=== PATIENT | female | born 1980 | race Caucasian/White ===

== ENCOUNTER 2017-07-09 08:53 | Outpatient (CLI) | payer BC | END 2017-07-09 08:54 | disposition home or self-care (01) | LOC: CP 08:53 → MERGE 09:30 | PROVIDERS: ATTEND Internal Medicine | DX: R05 Cough (principal); R91.8 Other nonspecific abnormal finding of lung field | CPT/HCPCS: 94010; 94727; 94729 ==

== ENCOUNTER 2017-07-28 17:02 | Emergency (ER) | payer BC ==
[2017-07-28 17:39] LABS: #Basophils 0.1 thou/uL (0.0-0.2); #Eosinphils 0.1 thou/uL (0.0-0.7); #Lymphocytes 1.6 thou/uL (1.20-3.40); #Monocytes 0.7 thou/uL (0.11-0.59); %Eosinophils 1.3 % (0.0-10.0); %Lymphocytes 17.1 % (21.0-51.0); %Monocytes 7.1 % (0.0-10.0); Hematocrit 38.5 % (36.0-47.0); Mean Platelet Volume 6.9 fL (7.4-10.4); Red Blood Cell (RBC) Count 4.67 mill/uL (4.20-5.40); White Blood Cell (WBC) Count 9.5 thou/uL (4.8-10.8)
[2017-07-28 17:50] LABS: ALT (SGPT) 10 U/L (8-55); AST (SGOT) 11 U/L (5-34); Alkaline Phosphatase 46 U/L (40-150); Anion Gap 16 mmol/L (10-20); BUN (Urea Nitrogen) 13 mg/dL (7.0-18.7); Bilirubin, Total 0.3 mg/dL (0.2-1.2); CK (CPK) 45 U/L (29-168); Calc. Creatinine Clearance 0 mL/min (70-130); Calcium 8.9 mg/dL (7.8-10.44); Carbon Dioxide 24 mmol/L (22-29); Chloride 103 mmol/L (98-107); Estimated GFR-MDRD 80; Globulin 3.6 g/dL (2.4-3.5); Protein, Total 7.7 g/dL (6.0-8.3)
[2017-07-28 17:53] LABS: Troponin I Less than 0.010 ng/mL (< 0.028)
--- NOTE | 2017-07-28 18:26 | RAD ---
CHEST ONE VIEW: HISTORY: Palpitations. Dyspnea. COMPARISON: 04/01/2017 FINDINGS: Cardiac silhouette is magnified by projection. Pulmonary vasculature is unremarkable. Mediastinum is midline. Blunting of the right lateral costophrenic angle has the appearance of a small amount o f pleural fluid with mild atelectasis at the right lung base. Left lung is well-inflated. IMPRESSION: Right pleural fluid and basilar atelectasis. POS: [facility]
== END 2017-07-28 20:26 | disposition home or self-care (01) ==
LOC: SCSER 17:02
DX: I49.3 Ventricular premature depolarization (principal)
CPT/HCPCS: 71010; 80053; 82553; 84484; 85025; 85379; 93005; 94760

== ENCOUNTER 2017-08-19 12:50 | Outpatient (CLI) | payer BC ==
--- NOTE | 2017-08-19 14:46 | CT ---
CT THORAX WITH CONTRAST: HISTORY: 36-year-old female with cough, chest pain, and abnormal chest radiograph. FINDINGS: There is a small right pleural effusion, freely layering at the posterior, dependent portion of the r ight hemithoracic cavity, occupying approximately 5% volume of the right hemithorax. Contiguous with the fluid at the right lateral costophrenic angle, there are irregularly shaped lesio ns connected to each other, extending superiorly, invaginating into the right middle lobe and lateral anterior portion of basilar segment of right lower lobe pleural surface. This consists of a mixture of superior extension of the pleural fluid intermingled with what appear to be a small amount of soft tissue density in the adjacent right lung parenchyma. The rest of the lungs are clear. There are sev eral mildly enlarged mediastinal lymph nodes and mild right hilar lymphadenopathy. No thoracic aortic aneurysm or dissection. Ectasia of ascending aorta. No cardiomegaly. No pneumothorax. No left-sided pleural effusion. No destructive osseous lesion or fracture. IMPRESSION: 1. Small right pleural effusion. 2. A small superior loculated extension of the right pleural effusion with irregular pulmonary paren chymal densities in the adjacent portions of the right middle lobe and right lower lobe. Etiology is uncertain, but this may represent an atypical manifestation of pneumonia, although that is not certai n. 3. Recommend 3 month follow-up chest CT after treatment. If symptoms progress, the follow-up CT may be obtained earlier. ELTON Serrano POS: [facility]
== END 2017-08-19 12:51 | disposition home or self-care (01) ==
LOC: SCSCT 12:50
PROVIDERS: ATTEND Internal Medicine
DX: R91.8 Other nonspecific abnormal finding of lung field (principal); J90 Pleural effusion, not elsewhere classified; R05 Cough
CPT/HCPCS: 71260

== ENCOUNTER 2018-02-10 08:53 | Outpatient (CLI) | payer BC ==
--- NOTE | 2018-02-10 12:25 | CT ---
CT CHEST WITH IV CONTRAST: HISTORY: Pulmonary nodule. COMPARISON: 08/19/2017 FINDINGS: Prominent lymph nodes in the mediastinum and right hilar region are again seen. There are new patchy densities in the left upper lobe and in the superior segment of the right lower lobe. A tiny right pleural effusion is noted, which is smaller than on the previous study. A 2.4 cm nodular density is seen at the peripheral aspect of the inferior right lower lobe, which is new since the last exam. De nsities at the lateral aspect of the right middle lobe have improved in the interim. No pericardial or left-sided pleural effusions are seen. Upper abdominal tomograms are stable. There are mild dege nerative changes in the spine. IMPRESSION: Patchy new densities in the lungs since 08/19/2017. Follow-up exam after treatment is recommended, in three months. POS: [facility]
== END 2018-02-10 08:54 | disposition home or self-care (01) ==
LOC: SCSCT 08:53
PROVIDERS: ATTEND Internal Medicine
DX: J98.4 Other disorders of lung (principal); J90 Pleural effusion, not elsewhere classified
CPT/HCPCS: 71260

== ENCOUNTER 2018-05-07 17:51 | Outpatient (CLI) | payer BC ==
[2018-05-07 18:36] LABS: #Basophils 0.1 thou/uL (0.0-0.2); #Eosinphils 0.2 thou/uL (0.0-0.7); #Lymphocytes 1.7 thou/uL (1.20-3.40); #Monocytes 0.9 thou/uL (0.11-0.59); %Basophils 0.9 % (0.0-1.0); %Eosinophils 1.7 % (0.0-10.0); %Lymphocytes 17.5 % (21.0-51.0); %Monocytes 8.9 % (0.0-10.0); Hemoglobin 14.5 g/dL (12.0-16.0); Mean Corpuscular HGB CONC 34.8 g/dL (32.0-36.0); Mean Corpuscular Hemoglobin 30.3 pg (27.0-31.0); Mean Corpuscular Volume 87.1 fL (78.0-98.0); Mean Platelet Volume 7.6 fL (7.4-10.4); Platelet Count 280 thou/uL (130-400); RBC Distribution Width 12.3 % (11.5-14.5); Red Blood Cell (RBC) Count 4.79 mill/uL (4.20-5.40); White Blood Cell (WBC) Count 9.8 thou/uL (4.8-10.8)
[2018-05-07 18:56] LABS: ALT (SGPT) 15 U/L (8-55); AST (SGOT) 19 U/L (5-34); Albumin 4.8 g/dL (3.5-5.0); Alkaline Phosphatase 40 U/L (40-150); Anion Gap 15 mmol/L (10-20); BUN (Urea Nitrogen) 18 mg/dL (7.0-18.7); Bilirubin, Total 0.6 mg/dL (0.2-1.2); Calc. Creatinine Clearance 0 mL/min (70-130); Calcium 9.5 mg/dL (7.8-10.44); Carbon Dioxide 23 mmol/L (22-29); Chloride 105 mmol/L (98-107); Estimated GFR-MDRD 56; Globulin 3.2 g/dL (2.4-3.5); Glucose 93 mg/dL (70-105); Potassium 4.5 mmol/L (3.5-5.1); Sodium 138 mmol/L (136-145)
[2018-05-07 19:15] LABS: BHCG - Serum Negative (NEGATIVE); Pregs Control Background? CLEAR/WHITE (CLR/WHITE); Pregs Control Bar Appear? YES (CONTROL BAR)
--- NOTE | 2018-05-07 20:01 | RAD ---
TWO VIEWS CHEST 05/07/18 COMPARISON: 04/01/17, 07/28/17. HISTORY: Preoperative exam. FINDINGS: Two views chest: Normal cardiac silhouette. The pulmonary vessels and hilum are normal. Costophrenic angles are clear. No masses or consolidation. No pneumothorax or osseous abnormalities. IMPRESSION: No acute cardiopulmonary process. POS: [facility]
== END 2018-05-07 17:52 | disposition home or self-care (01) ==
LOC: LABBT 17:51
PROVIDERS: ATTEND Surgery
DX: Z01.812 Encounter for preprocedural laboratory examination (principal); K21.9 Gastro-esophageal reflux disease without esophagitis
CPT/HCPCS: 71046; 80053; 84703; 85025

== ENCOUNTER 2018-05-15 08:52 | Inpatient (IN) | payer BC ==
[2018-05-15] MEDS ORDERED: CEFAZOLIN/Water 2 GM/20 ML SYRINGE ONE (09:53)
[2018-05-15] MEDS ORDERED: Bupivacaine/Epinephrine 0.25% 30 ML VIAL ONE (10:34)
[2018-05-15] MEDS ORDERED: Fentanyl 250 MCG/5 ML VIAL ONE (11:02)
[2018-05-15] MEDS ORDERED: Midazolam HCl 2 mg/2 ml Vial ONE (11:02)
[2018-05-15] MEDS ORDERED: Morphine 4 MG/ML VIAL SLOW IVP PRN (12:48)
[2018-05-15] MEDS ORDERED: Ondansetron HCl/PF 4 MG/2 ML Vial IVP PRN (12:48)
[2018-05-15] MEDS ORDERED: Hydrocodone-Acetamin 15 ML UDCUP PO PRN (12:48)
[2018-05-15] MEDS ORDERED: Promethazine HCl 25 MG/ML VIAL IM PRN (12:48)
[2018-05-15] MEDS ORDERED: hydrALAZINE 20 MG/ML VIAL SLOW IVP PRN (12:48)
[2018-05-15] MEDS ORDERED: Dextrose 50% Abboject 50 ML SYRINGE SLOW IVP PRN (12:48)
[2018-05-15] MEDS ORDERED: diphenhydrAMINE 50 MG/ML VIAL IVP PRN (12:48)
[2018-05-15] MEDS ORDERED: Dextrose 5% in Water 1,000 ML IV PRN (12:48)
[2018-05-15] MEDS ORDERED: Promethazine HCl 25 MG/ML VIAL ONE (13:17)
--- NOTE | 2018-05-15 13:39 | OP ---
PREOPERATIVE DIAGNOSIS: Severe gastroesophageal reflux. SURGEON: Vineet Gama M.D. PROCEDURE PERFORMED: Laparoscopic Abebe fundoplication with EGD. INDICATIONS: This is a 37-year-old female, who was having cough with recurrent pneumonia and was fou nd to have severe laryngeal reflux as a cause. A 24-hour pH probe confirmed that reflux. FINDINGS: A small hiatal hernia, 40-Sing[place]an bougie used. PROCEDURE IN DETAIL: After informed consent was obtained, the patient was taken to the operating carlito m and given general endotracheal anesthesia. She was placed in the supine position. Abdomen was pre pped and draped in usual fashion. Local anesthesia infiltrated subcutaneously and deep. A 5-mm inci denton was performed approximately 8 inches below the xiphoid slightly to the left. Veress needle inse rted. Drop test performed. Pneumoperitoneum was created to a volume of 2 liters of carbon dioxide. Using a bladeless 5 mm trocar and 0-degree laparoscope, direct visual entry in the abdominal cavity was performed. Pneumoperitoneum was created to a pressure of 15 mmHg. The patient placed in steep r everse Trendelenburg position. Campos liver retractor inserted. Left lobe of liver retracted sup eriorly. A 5-mm port was placed just to the left of falciform, an 8-mm port was placed in left subco stal, and another 5-mm port placed lateral left abdomen. The gastrophrenic ligament was divided util izing the LigaSure. The peritoneum opened anteriorly along the crura with the LigaSure. The left cr ura defined with the LigaSure. The right crura defined with the LigaSure. Short gastrics were then taken down utilizing the LigaSure and the left crura further define. Then a posterior esophageal win karina was created, a Tr drain was then placed to aid in retraction in this window. A 40-Sing[place]an lalit ugie was inserted under direct vision and the fundus grasped and brought to the right side of the eso phagus. It was sutured from fundus to esophagus to fundus utilizing interrupted 2-0 silk sutures tie d intracorporeally. This was done after a posterior crural plication was performed utilizing a 0 Eth ibond and the Sew-Right and tie knot device. Then, the fundus was further secured to the lateral abd ominal wall to aid in preventing any recurrence with a 2-0 silk suture tied intracorporeally. Intrao perative endoscopy was then performed utilizing a video endoscope. The scope was inserted under dire ct vision and advanced through the esophagus into the stomach, stomach insufflated with air. There w as no bleeding. The wrap looked good. There was no paraesophageal component, no torsion. The stoma ch decompressed and the scope removed. Then, fibrin glue tissue sealant was used to spray around the wrap and the hiatus to improve adhesion formation locally. Hemostasis was assured. Trocars and ret ractors removed. The skin closed with interrupted 4-0 Rapide. Steri-Strips applied. Sterile bandag e applied. The patient tolerated the procedure well and was transferred to recovery in good conditio n. Sponge and needle count verified correct x2.
[2018-05-15 14:42] VITALS: BMI 27.3
[2018-05-15] MEDS: D5 1/2 NS w/20 mEq KCL 1,000 ML IV SCH ×2 (14:58→22:01)
[2018-05-15] MEDS ORDERED: Scopolamine 1.5 mg/72 hour Patch TD SCH (16:00)
[2018-05-15] MEDS ORDERED: Diabetic Tussin 200 MG/10 ML UDCUP PO PRN (17:09)
[2018-05-15] MEDS: Ketorolac Tromethamine 30 MG/ML VIAL IVP SCH (17:27)
[2018-05-15] MEDS: Acetaminophen 1,000 MG in Premix Bag 1 BAG IVPB SCH (17:49)
[2018-05-15] MEDS: CEFAZOLIN/Water 2 GM/20 ML SYRINGE SLOW IVP SCH (17:49)
[2018-05-15] MEDS: Metoclopramide HCl 10 MG/2 ML VIAL IVP SCH (21:50)
[2018-05-16] MEDS: Acetaminophen 1,000 MG in Premix Bag 1 BAG IVPB SCH ×3 (00:04→11:29)
[2018-05-16] MEDS: Ketorolac Tromethamine 30 MG/ML VIAL IVP SCH ×3 (00:05→11:30)
[2018-05-16] MEDS: CEFAZOLIN/Water 2 GM/20 ML SYRINGE SLOW IVP SCH (03:15)
[2018-05-16] MEDS: D5 1/2 NS w/20 mEq KCL 1,000 ML IV SCH ×2 (03:15→13:58)
[2018-05-16 05:11] LABS: #Basophils 0.1 thou/uL (0.0-0.2); #Monocytes 0.8 thou/uL (0.11-0.59); #Neutrophils 8.9 thou/uL (1.40-6.50); %Basophils 0.5 % (0.0-1.0); %Eosinophils 0.2 % (0.0-10.0); %Lymphocytes 8.9 % (21.0-51.0); %Monocytes 7.6 % (0.0-10.0); %Neutrophils 82.8 % (42.0-75.0); Mean Corpuscular HGB CONC 34.6 g/dL (32.0-36.0); Mean Corpuscular Hemoglobin 30.5 pg (27.0-31.0); Mean Corpuscular Volume 88.3 fL (78.0-98.0); Mean Platelet Volume 8.5 fL (7.4-10.4); Platelet Count 192 thou/uL (130-400); RBC Distribution Width 12.4 % (11.5-14.5); Red Blood Cell (RBC) Count 3.94 mill/uL (4.20-5.40); White Blood Cell (WBC) Count 10.8 thou/uL (4.8-10.8)
[2018-05-16 05:15] LABS: Anion Gap 12 mmol/L (10-20); BUN (Urea Nitrogen) 7 mg/dL (7.0-18.7); Calc. Creatinine Clearance 112 mL/min (70-130); Calcium 8.2 mg/dL (7.8-10.44); Carbon Dioxide 20 mmol/L (22-29); Chloride 110 mmol/L (98-107); Estimated GFR-MDRD 72; Glucose 116 mg/dL (70-105); Potassium 4.1 mmol/L (3.5-5.1); Sodium 138 mmol/L (136-145)
[2018-05-16] MEDS: Metoclopramide HCl 10 MG/2 ML VIAL IVP SCH ×2 (06:00→14:01)
[2018-05-16] MEDS ORDERED: Enoxaparin Sodium 40 MG/0.4 ML SYRINGE SC SCH (09:00)
[2018-05-16] MEDS ORDERED: Pantoprazole 40 MG VIAL IVP SCH (09:00)
[2018-05-16] MEDS ORDERED: GASTROGRAFIN 30 ML BOT ONE (10:54)
--- NOTE | 2018-05-16 11:45 | RAD ---
GASTROGRAFIN SWALLOW: Date: 05/16/18 HISTORY: Postop fundoplication by patient history. TECHNIQUE/FINDINGS: The patient was given 15 mL of Gastrografin, which she ingested without difficulty. The Gastrografin passed into the stomach without difficulty. No extravasation. IMPRESSION: Unremarkable Gastrografin swallow study. POS: [facility]
[2018-05-16 12:10] VITALS: BP 108/72; TEMP 98.3
== END 2018-05-16 15:47 | disposition home or self-care (01) | DRG 328 ==
LOC: SDC 08:52 → SURG A 12:48
PROVIDERS: ADMIT Surgery; ATTEND Surgery
PROC: 0DV44ZZ Restriction of Esophagogastric Junction, Percutaneous Endoscopic Approach (ICD-10-PCS; principal; 2018-05-15)
DX: K21.9 Gastro-esophageal reflux disease without esophagitis (principal)
CPT/HCPCS: 36415; 74241; 80048; 85025; 94760; C9113; J0131; J1650; J1885; J2250; J2270; J2550; J2765; J3010

== ENCOUNTER 2018-05-19 13:29 | Inpatient (IN) | payer BC ==
[2018-05-19 14:47] LABS: #Basophils 0.1 thou/uL (0.0-0.2); #Eosinphils 0.1 thou/uL (0.0-0.7); #Monocytes 0.7 thou/uL (0.11-0.59); #Neutrophils 7.5 thou/uL (1.40-6.50); %Eosinophils 1.1 % (0.0-10.0); %Lymphocytes 10.5 % (21.0-51.0); %Monocytes 7.8 % (0.0-10.0); %Neutrophils 79.6 % (42.0-75.0); Hemoglobin 12.5 g/dL (12.0-16.0); Mean Corpuscular HGB CONC 33.7 g/dL (32.0-36.0); Mean Corpuscular Hemoglobin 28.9 pg (27.0-31.0); Mean Corpuscular Volume 85.6 fL (78.0-98.0); Mean Platelet Volume 8.3 fL (7.4-10.4); Platelet Count 220 thou/uL (130-400); RBC Distribution Width 11.3 % (11.5-14.5); Red Blood Cell (RBC) Count 4.33 mill/uL (4.20-5.40); White Blood Cell (WBC) Count 9.5 thou/uL (4.8-10.8)
[2018-05-19] MEDS ORDERED: Iopamidol 370 76% 100 ML VIAL ONE (14:47)
[2018-05-19 15:01] LABS: ALT (SGPT) 11 U/L (8-55); AST (SGOT) 13 U/L (5-34); Albumin 3.4 g/dL (3.5-5.0); Alkaline Phosphatase 33 U/L (40-150); Anion Gap 9 mmol/L (10-20); BUN (Urea Nitrogen) 8 mg/dL (7.0-18.7); Bilirubin, Total 0.4 mg/dL (0.2-1.2); Calc. Creatinine Clearance 0 mL/min (70-130); Calcium 8.5 mg/dL (7.8-10.44); Carbon Dioxide 25 mmol/L (22-29); Chloride 109 mmol/L (98-107); Estimated GFR-MDRD 74; Globulin 2.7 g/dL (2.4-3.5); Glucose 90 mg/dL (70-105); Potassium 4.1 mmol/L (3.5-5.1); Protein, Total 6.1 g/dL (6.0-8.3); Sodium 139 mmol/L (136-145)
--- NOTE | 2018-05-19 15:02 | RAD ---
CHEST 2 VIEWS: COMPARISON: 05/07/18. HISTORY: Palpitations. Crackles in left lung base. FINDINGS: Normal cardiac silhouette. The pulmonary vessels are within normal limits. There is increased inter stitial opacification, predominantly in the lung bases. Small bilateral effusions, left greater than right. No pneumothorax or osseous abnormalities. IMPRESSION: Possible volume overload/interstitial edema. Continued surveillance is recommended. POS: [facility]
[2018-05-19 15:05] LABS: CKMB 0.4 ng/mL (0-6.6)
[2018-05-19] MEDS ORDERED: Azithromycin 500 MG VIAL ONE (16:55)
--- NOTE | 2018-05-19 16:55 | CT ---
CT ANGIOGRAM OF THE CHEST: 05/19/18 COMPARISON: 02/10/18, 08/19/17. TECHNIQUE: CT angiogram of the chest is performed in the axial plane. Three dimensional reformatted images are s ubmitted for interpretation. FINDINGS: There are nonspecific prevascular lymph nodes. There is enlarged subcarinal lymph node measuring 1.0 x 1.5 cm. There is increased soft tissue density in the right and left hilum. Right hilar soft tissue fullness measures at least 1.8 x 1.5 cm. left hilar soft tissue fullness is less evident. Bilateral hilar fullness has developed since the previous examination. There are patchy linear opacities throug hout the lung parenchyma. Focal nodular opacity adjacent to the right major fissure. There are bilate ral pleural effusions which have progressed/developed since January of 2018. The interstitial and ground glass opacities in the left lower lobe suggesting possible pneumonia. Trachea and central bronchi are patent. The visualized upper solid organs are unremarkable. The visualized aorta has a normal caliber. Heart size is normal. No significant pericardial fluid. Limited evaluation of the pulmonary arterial system to the level of the lobar artery due to timing of bolus. No evidence of a central pulmonary artery embolism. There appears to be a short segment narro wing of the proximal right lobar artery that supplies the right lower lobe (axial image #67 and 68. T his was also noted on series 606, image 22. IMPRESSION: 1. No evidence of pulmonary artery embolism of the lobar arteries. 2. Short segment narrowing of the right lower lobe artery proximally. There is increasing soft t issue density in the left and right hilum. Additional increased soft tissue densities are noted throu ghout the lung parenchyma, greatest in the left lower lobe. Correlate for pneumonia. There is some me diastinal lymphadenopathy. Correlate for infectious or inflammatory processes. Additionally, correlat e for possible etiology such as sarcoidosis. Consider pulmonary consultation. POS: [facility]
[2018-05-19] MEDS ORDERED: cefTRIAXone\\ROCEPHIN 2 GM VIAL ONE (18:37)
[2018-05-19] MEDS ORDERED: Sodium Chloride 0.9% 100 ML ONE (18:37)
[2018-05-19] MEDS ORDERED: Acetaminophen 325 MG TAB PO PRN (19:56)
[2018-05-19] MEDS ORDERED: Ondansetron HCl/PF 4 MG/2 ML Vial SLOW IVP PRN (19:57)
[2018-05-19] MEDS ORDERED: HYDROcodone/Acetaminophen 5/325 mg Tablet PO PRN (19:58)
[2018-05-19] MEDS ORDERED: Ondansetron ODT 4 MG TAB PO PRN (19:58)
[2018-05-19 22:30] VITALS: BMI 28.0
[2018-05-19] MEDS ORDERED: Hydrocodone-Acetamin 15 ML UDCUP PO PRN (23:45)
--- NOTE | 2018-05-20 03:49 | HP ---
DATE OF ADMISSION: 05/19/2018 ADMITTING PHYSICIAN: Tolu Saez M.D. HISTORY OF PRESENT ILLNESS: The patient is a 37-year-old female status post fundoplication approxima alina [address] Gama. The patient reports she was in her normal state of health. She was ea ting when she developed feelings of tachycardia associated with some cough. There has been no fever. She has had a chronic cough for many years that is why she underwent fundoplication. She noted sin ce she had surgery, her cough had improved. After eating this morning she felt like she was having r apid heart rate, not associated with any significant chest pain nor shortness of breath. She is foll owing Dr. Gama. She was brought to the emergency room. She was seen and evaluated there. CT scan of the chest did not reveal any evidence of an elevated pulmonary embolus, although there were change s associated with her CT scan. She has had a history of chronic lung changes of unknown etiology, [place] s been followed by gaming investigator for this. Upon my arrival, she was feeling better, still having clair e cough, no chest pain. Still having some mid thoracic pain probably from her surgery. She noted no nausea, vomiting, diarrhea. She did not note any fevers associated with this. Otherwise, no other medical complaints are noted. She is now resting comfortably. ALLERGIES: She has no known allergies. CURRENT MEDICATIONS: Her pain medicine as well as Zofran. PAST MEDICAL HISTORY: Positive for the above noted cough, negative for hypertension, atherosclerotic coronary artery disease, history of deep vein thrombosis, history of pulmonary embolus. PAST SURGICAL HISTORY: Positive only for the recent fundoplication. SOCIAL AND PERSONAL HISTORY: She does not drink nor does she smoke. REVIEW OF SYSTEMS: Gastrointestinal: Positive as above. Genitourinary: Negative. Cardiovascular: Otherwise, negative. Pulmonology: Positive as above. Neurologic: Otherwise, negative. PHYSICAL EXAMINATION: VITAL SIGNS: Her blood pressure is 140/79, pulse 88, O2 sats 94% on room air, temperature 98.6. GENERAL: She is alert, active, does not appear in distress. HEENT: Normocephalic, atraumatic. Extraocular muscles are intact. Sclerae and conjuctivae are ashley r. Throat is clear without exudates or hemorrhages. NECK: Supple, full range of motion, no masses. LUNGS: Reveal bilateral breath sounds with some crackles noted to her left base. There is no rhonch i or wheezes, otherwise noted, however. NEUROLOGICAL: She is alert and oriented x3. Cranial nerves II-XII are intact. EXTREMITIES: No clubbing, edema or cyanosis. pain otherwise noted. LABORATORY DATA: Hemoglobin 12.5, hematocrit 37.1, white blood count is 9.5. D-dimer is 1.8. Sodiu m 139, potassium 4.1, chloride 109, CO2 of 25, BUN 8, creatinine 0.85. Troponin less than 0.1. Ches t x-ray does reveal some interstitial edema. CT angio of the chest, no evidence of any pulmonary emb olus. There is increasing soft tissue density of left and right hilum associated with some additiona l soft tissue densities throughout the lung parenchyma, more pronounced in the left lower lobe. IMPRESSION: A 37-year-old female status post recent fundoplication who presents now with some palpit ations associated with decreased O2 sat with mildly abnormal CT scan of the chest. PLAN: She will be admitted for pneumonia. We will continue antibiotics of ceftriaxone and Zithromax , albuterol nebs, will get a pulmonary consult from Dr. Palmer who was seen her in the past.
[2018-05-20] MEDS: Albuterol Sulfate 2.5 mg/3 ml Neb NEB SCH ×4 (07:00→18:19)
[2018-05-20] MEDS: Enoxaparin Sodium 40 MG/0.4 ML SYRINGE SC SCH (08:55)
--- NOTE | 2018-05-20 10:42 | PRG ---
DATE OF SERVICE: 05/20/2018 SUBJECTIVE: Ms. Saez is feeling better. She feels like she is breathing better, resting more comfo rtably in bed. PHYSICAL EXAMINATION: VITAL SIGNS: Temperature 98.3, BP 122/82, O2 sats 100% on 2 liters. HEENT: Unremarkable. LUNGS: Reveal decreased crackles in the left base, some are minor present. There is no wheezing. HEART: Reveals a regular rate and rhythm without murmurs, gallops or rubs. IMPRESSION: Dyspnea, shortness of breath with tachycardia of unknown etiology. This possibly could represent some postoperative atelectasis and decreased inspiration, respiration postoperatively from a Abebe fundoplication. She does have a slightly abnormal CT; however, these have been abnormal bef ore, whether this represents a true pneumonia, we will have Pulmonology come by and consult today. PLAN: We will continue current medications. Continue breathing treatments.
--- NOTE | 2018-05-20 14:28 | CON ---
DATE OF CONSULTATION: 05/20/2018 GENERAL SURGERY CONSULTATION HISTORY OF PRESENT ILLNESS: The patient came in with what she described as rapid heart rate when she tried to eat. She was seen in the emergency room and they found pneumonia, so she was admitted. Th e patient had recent Abebe fundoplication last week. She says she is doing well from that. She is having no reflux. Her cough is better. She is having no pain. Her bowels are working well. She is staying hydrated. PHYSICAL EXAMINATION: VITAL SIGNS: Her temperature is 98.1, pulse 88, blood pressure 123/71. GENERAL: She looks good. Her incisions are healing well. There is no evidence of infection. No di stention. LABORATORY DATA: White count is 9.5, H and H 12 and 37, platelet count 220,000. Electrolytes are fi ne. D-dimer of 1.8. She had a CT scan that showed several areas of infiltrate, but no evidence of p ulmonary embolus. ASSESSMENT: Possible pneumonia. PLAN: Per Pulmonary. No surgical intervention required at this time.
[2018-05-20] MEDS: cefTRIAXone\\ROCEPHIN 2 GM in Sodium Chloride 0.9% 100 ML IVPB SCH (16:43)
[2018-05-20] MEDS: Azithromycin 500 MG in Sodium Chloride 0.9% 250 ML 250 ML IVPB SCH (16:44)
[2018-05-21] MEDS: Albuterol Sulfate 2.5 mg/3 ml Neb NEB SCH ×4 (07:19→19:41)
[2018-05-21] MEDS: Furosemide 20 MG/2 ML VIAL IVP SCH ×2 (09:44→15:16)
[2018-05-21] MEDS: Enoxaparin Sodium 40 MG/0.4 ML SYRINGE SC SCH (09:44)
--- NOTE | 2018-05-21 13:27 | PRG ---
DATE OF SERVICE: 05/21/2018 SUBJECTIVE: Ms. Saez is resting more comfortably. She states she feels better. She has no shortne ss of breath, minimal coughing. PHYSICAL EXAMINATION: VITAL SIGNS: Temperature is 97.7, O2 sats 95% on room air. LUNGS: Reveal decreased crackles of the left base, there are practically none now. HEART: Reveals no murmur. Blood cultures are negative. IMPRESSION: Left lower lobe pneumonia seems to be improving. PLAN: If the patient is good and comfortable tomorrow, probably she can be discharged home on antibi otics. Further recommendations per Pulmonary are pending.
[2018-05-21] MEDS: Azithromycin 500 MG in Sodium Chloride 0.9% 250 ML 250 ML IVPB SCH (17:28)
[2018-05-21] MEDS: cefTRIAXone\\ROCEPHIN 2 GM in Sodium Chloride 0.9% 100 ML IVPB SCH (18:50)
--- NOTE | 2018-05-21 19:57 | CON ---
DATE OF CONSULTATION: 05/21/2018 SERVICE: Pulmonary Medicine. REASON FOR CONSULTATION: Abnormal CT findings. HISTORY OF PRESENT ILLNESS: The patient is a 37-year-old white female with past medical history significant for chronic cough. This has been present for a long period of time. Ultimately, we decided it was likely secondary to reflux. She went for a Abebe fundoplication here just recently. This was done on 05/15/2018. Immediately following the procedure, the longstanding cough that she has been suffering from completely resolved. She was very excited about this, but developed increasing lower extremity swelling and a little bit of shortness of breath. The cough once again recurred. She presented to the emergency department on 05/19/2018 with complaints of when she had severe palpitations and little bit of cough that developed as she was eating some tomato soup. She presented to the emergency department where a chest x-ray was abnormal. This prompted a CT scan. She had bilateral infiltrates as well as pleural effusions and interstitial thickening throughout bilateral lung grimaldo. There was concern for sarcoidosis. She was subsequently put in the hospital. During the hospital stay, she has been eating comfortably. She had complaints of increasing abdominal swelling, little bit of edema in the legs. She also had increasing shortness of breath that really developed while she was here in the hospital. PAST MEDICAL HISTORY: 1. Gastroesophageal reflux disease. 2. Chronic cough, recently resolved. 3. Hypertension. 4. History of pulmonary embolism and DVT. 5. Coronary artery disease. PAST SURGICAL HISTORY: Abebe fundoplication, postop 1 week. SOCIAL HISTORY: Negative for alcohol, tobacco or illicit drug use. She has no exposure to chemicals, dust asbestos or tuberculosis. FAMILY HISTORY: Noncontributory. ALLERGIES: No known drug allergies. MEDICATIONS: List of her inpatient medications were reviewed. No specific updates were made at this time. REVIEW OF SYSTEMS: General, head, ears, eyes, nose, throat, cardiovascular, respiratory, GI, , musculoskeletal, neurologic and skin is negative except as mentioned in the HPI. PHYSICAL EXAMINATION: VITAL SIGNS: Afebrile, pulse 92, blood pressure 121/77, respirations 20, saturation 98% on room air. GENERAL: The patient is awake, alert, in no apparent distress. LUNGS: Excellent air entry. There is no prolonged expiratory phase or wheezing present. Rhonchi are there, but clear with cough. There is decreased air entry in the bibasilar regions. Dullness to percussion located there. It is a little bit worse on the right compared to left. HEART: Normal rate, regular. ABDOMEN: Soft, nontender, nondistended. Bowel sounds are positive. MUSCULOSKELETAL: No cyanosis or clubbing. There is trace pitting in the bilateral lower extremities. NEUROLOGIC: Grossly nonfocal. LABORATORY DATA: WBC 9.5, hemoglobin 12.5, platelets 220,000. D-dimer 1.8. Basic metabolic profile and liver function studies are unremarkable. BNP was previously 140. Troponin is unremarkable. Blood cultures x2 are negative. IMAGING: CTA of the chest demonstrates interstitial fullness throughout bilateral lung grimaldo. There are scattered infiltrates present. These are once again mostly in the dependent regions throughout bilateral lung grimaldo. Bilateral pleural effusions are noted. They are quite small. Volume overload changes are also noted. The right atrium and left atrium are both generous in size. Right ventricle is full, but it is not causing any significant flattening of the septum of the intraventricular septum. ASSESSMENT: 1. Community-acquired pneumonia, possible. 2. Aspiration pneumonitis, suspected. 3. Volume overload as evidenced on CT scan. 4. Gastroesophageal reflux disease, status post recent Abebe fundoplication. DISCUSSION AND PLAN: The patient will complete a 5-day course of antibiotic. From my perspective, she is stable for transition home. She has a touch of volume overloaded on CT scan and clinically. As such, we will give her a couple of doses of Lasix before she gets out of here. Certainly, if the fluid recurs, she will need investigation for her heart, liver, and kidneys to verify that she does not have any reason to have volume overload state. For the time being, it is likely secondary to her recent surgical procedures and volume she has been getting in the hospital over the last couple of weeks. 70 minutes have been devoted to this patient in various activities. I personally reviewed all imaging studies and laboratory data noted within this document. For fifty percent of this time, I was interacting with the patient at the bedside or coordinating care with the care team. For the remainder of the time I was immediately available to the patient in the hospital unit. SIMONA
[2018-05-21 21:18] LABS: Bilirubin Negative (Negative); Blood, Urine Moderate (Negative); Clarity CLOUDY (Clear); Glucose, Urine (Dipstick) Negative (Negative); Leukocyte Negative (Negative); Nitrite Negative (Negative); Protein, Urine (Dipstick) Negative (Neg-Trace); Specific Gravity, Urine 1.015 (1.002-1.036); Urobilinogen 0.2 mg/dL (0.2-1.0); pH, Urine 5.5 (5.0-9.0)
[2018-05-21 21:20] LABS: Bacteria/HPF Rare-Few HPF (None Seen); Hyaline Casts/LPF 0-3 HYALINE CAST LPF (0-3 Hyaline); Pathc Cast-AUWi Flag 0.29 (0-2.49)
[2018-05-21 21:32] LABS: RBC/HPF 0-3 HPF (0-3)
[2018-05-22 05:06] LABS: INR-International Normal Ratio 1.2; Prothrombin Time 14.8 SEC (12.0-14.7)
[2018-05-22 05:10] LABS: Anion Gap 13 mmol/L (10-20); BUN (Urea Nitrogen) 9 mg/dL (7.0-18.7); Calc. Creatinine Clearance 103 mL/min (70-130); Calcium 9.3 mg/dL (7.8-10.44); Carbon Dioxide 28 mmol/L (22-29); Chloride 103 mmol/L (98-107); Estimated GFR-MDRD 66; Glucose 85 mg/dL (70-105); Magnesium 2.1 mg/dL (1.6-2.6); Potassium 4.1 mmol/L (3.5-5.1); Sodium 140 mmol/L (136-145)
[2018-05-22] MEDS: Albuterol Sulfate 2.5 mg/3 ml Neb NEB SCH ×2 (07:00→10:43)
--- NOTE | 2018-05-22 08:14 | PRG ---
DATE OF SERVICE: 05/22/2018 Ms. Saez is feeling much better. She reports no shortness of breath, no cough, no chest pain. PHYSICAL EXAMINATION: VITAL SIGNS: Temperature 98.4, BP 120/65. LUNGS: Clear bilaterally. HEART: Reveals no murmur. LABORATORY: Sodium 140, potassium 4.1, chloride 103, BUN 9, creatinine 0.94. IMPRESSION: Resolving pneumonia. PLAN: 1. The patient will be discharged home safely on Levaquin 500 mg p.o. daily. 2. She is also receiving albuterol inhaler. 3. Follow up with me in 1 week, probably follow up with Dr. Palmer in approximately 4 weeks.
[2018-05-22] MEDS: Enoxaparin Sodium 40 MG/0.4 ML SYRINGE SC SCH (10:09)
--- NOTE | 2018-05-22 12:15 | DIS ---
DATE OF ADMISSION: 05/19/2018 DATE OF DISCHARGE: 05/22/2018 DISCHARGE DIAGNOSES: 1. Left lower lobe pneumonia. 2. Status post Abebe fundoplication for recurrent cough. 3. Gastroesophageal reflux. CONSULTATIONS: Dr. Palmer. HOSPITAL COURSE: The patient is a 37-year-old female, who underwent recent Abebe fundoplication. S he reported to the emergency room complaining of some palpitations associated with some mild shortnes s of breath. She was seen and evaluated in the emergency room. CT scan of her chest did reveal some left lower lobe infiltrate. She was subsequently admitted to the hospital, begun on IV ceftriaxone as well as IV Zithromax as well as albuterol nebs. She was seen in consultation by Dr. Palmer who h as seen her in the past for recurrent issues involving her pulmonary status. Her hospital course was one of smooth recovery. There was no additional treatment that was given other than the IV antibiot ics, and nebs. She was discharged home subsequently on Levaquin 500 mg p.o. daily as well as albuter ol inhaler. She will follow up with me in 1 week.
[2018-05-22 12:33] VITALS: BP 121/82; TEMP 98.2
--- NOTE | 2018-05-22 17:58 | PRG ---
DATE OF SERVICE: 05/22/2018 SERVICE: Pulmonary Medicine. INTERVAL HISTORY: The patient is doing outstanding from a respiratory standpoint. Abdominal swelling is down. She does not have any shortness of breath or cough. Otherwise, she has returned to usual state of health and she is looking for getting out of hospital. There has been no interval change to her condition. PHYSICAL EXAMINATION: VITAL SIGNS: Afebrile, pulse 92, blood pressure 121/82, respirations 16, saturation 95% on room air. GENERAL: The patient is awake, alert, no apparent distress. LUNGS: Excellent air entry. There is no prolonged expiratory phase. Crackles are much improved. HEART: Normal rate, regular. ABDOMEN: Soft, nontender, nondistended. Bowel sounds are positive. MUSCULOSKELETAL: No cyanosis or clubbing. No pitting in the bilateral lower extremities. NEUROLOGIC: Grossly nonfocal. LABORATORY DATA: INR 1.2. Basic metabolic profile is completely unremarkable. BNP was previously slightly elevated. Urinalysis was negative for proteinuria. There were no red blood cells, though moderate blood was identified on the DIP suggesting some degree of myoglobinemia. Blood cultures x2 remain unremarkable. ASSESSMENT: 1. Community-acquired pneumonia, once again likely secondary to aspiration. 2. Aspiration pneumonitis. 3. Volume overload. 4. Gastroesophageal reflux disease, status post Abebe fundoplication. DISCUSSION AND PLAN: The patient will return to my clinic in 4 weeks with a preclinic chest x-ray to make certain effusions and infiltrate stay away. If she has any respiratory issues between now and that time, I have directed her to return sooner. She does not have any significant proteinuria. Her INR is normal. This would suggest that we are not dealing with any sort of nephropathy or cirrhosis. If the fluid comes back, heart will be investigated in the very near future. At this point, the patient is stable for transition out of the hospital. If she remains inhouse, pulmonary will continue to follow. SIMONA
== END 2018-05-22 12:25 | disposition home or self-care (01) | DRG 179 ==
LOC: EEVIPCON 13:29 → SCSER 13:29 → OBSVTOIN 19:51 → 2SW 19:51 → 2NO 05-20 22:04
PROVIDERS: ADMIT Family Medicine; ATTEND Family Medicine
DX: J69.0 Pneumonitis due to inhalation of food and vomit (principal); E87.70 Fluid overload, unspecified; K21.9 Gastro-esophageal reflux disease without esophagitis; Z86.718 Personal history of other venous thrombosis and embolism; I25.10 Atherosclerotic heart disease of native coronary artery without angina pectoris
CPT/HCPCS: 36415; 71046; 71275; 80048; 80053; 81001; 82553; 83735; 83880; 84484; 85025; 85379; 85610; 87040; 93005; 94640; 94760; 96365; 96367; A4216; J0456; J0696; J1650; J1940; J7050; J7611

== ENCOUNTER 2018-06-15 11:09 | Outpatient (CLI) | payer BC ==
--- NOTE | 2018-06-15 12:50 | RAD ---
PA AND LATERAL CHEST: Indication: Dyspnea. Comparison: 05-19-18 FINDINGS: There is improvement in the previously seen cardiomegaly. Pulmonary vasculature is within normal limi ts. No pleural effusion is evident. No acute osseous abnormality is noted. IMPRESSION: Improved CHF or volume overload. No acute cardiopulmonary abnormality demonstrated. POS: [facility]
== END 2018-06-15 11:10 | disposition home or self-care (01) ==
LOC: RAD 11:09
PROVIDERS: ATTEND Internal Medicine
DX: R06.00 Dyspnea, unspecified (principal)
CPT/HCPCS: 71046

== ENCOUNTER 2018-07-03 07:49 | Outpatient (CLI) | payer BC ==
--- NOTE | 2018-07-03 09:03 | ULT ---
RIGHT UPPER QUADRANT ULTRASOUND: Date: 06/24/18 INDICATION: Epigastric/upper abdominal pain. FINDINGS: There is mild echogenicity within the gallbladder lumen that may be related to sludge and/or gravel-l china cholelithiasis. There is no acute cholecystitis evident. No focal hepatic lesion or ascites. The imaged common duct measures 4.0 mm, within normal limits. IMPRESSION: Mild low level echoes of the gallbladder lumen, but otherwise unremarkable right upper quadrant ultra sound. POS: [facility]
== END 2018-07-03 07:50 | disposition home or self-care (01) ==
LOC: SCSULT 07:49
PROVIDERS: ATTEND Surgery
DX: R10.11 Right upper quadrant pain (principal)
CPT/HCPCS: 76705

== ENCOUNTER 2018-07-08 16:02 | Outpatient (CLI) | payer BC ==
[2018-07-08 17:01] LABS: #Basophils 0.1 thou/uL (0.0-0.2); #Eosinphils 0.1 thou/uL (0.0-0.7); #Lymphocytes 1.5 thou/uL (1.20-3.40); #Monocytes 0.8 thou/uL (0.11-0.59); #Neutrophils 5.5 thou/uL (1.40-6.50); %Basophils 0.8 % (0.0-1.0); %Eosinophils 1.2 % (0.0-10.0); %Lymphocytes 18.5 % (21.0-51.0); %Monocytes 10.3 % (0.0-10.0); %Neutrophils 69.2 % (42.0-75.0); Hemoglobin 13.6 g/dL (12.0-16.0); Mean Corpuscular HGB CONC 32.7 g/dL (32.0-36.0); Mean Corpuscular Hemoglobin 29.1 pg (27.0-31.0); Mean Platelet Volume 7.6 fL (7.4-10.4); Platelet Count 266 thou/uL (130-400); RBC Distribution Width 12.9 % (11.5-14.5); Red Blood Cell (RBC) Count 4.68 mill/uL (4.20-5.40); White Blood Cell (WBC) Count 7.9 thou/uL (4.8-10.8)
[2018-07-08 17:17] LABS: BHCG - Serum Negative (NEGATIVE); Pregs Control Background? CLEAR/WHITE (CLR/WHITE); Pregs Control Bar Appear? YES (CONTROL BAR)
[2018-07-08 17:43] LABS: ALT (SGPT) 27 U/L (8-55); AST (SGOT) 25 U/L (5-34); Albumin 4.3 g/dL (3.5-5.0); Alkaline Phosphatase 42 U/L (40-150); Bilirubin, Direct 0.2 mg/dL (0.1-0.3); Bilirubin, Total 0.5 mg/dL (0.2-1.2); Protein, Total 7.6 g/dL (6.0-8.3)
== END 2018-07-08 16:03 | disposition home or self-care (01) ==
LOC: LABBT 16:02
PROVIDERS: ATTEND Surgery
DX: Z01.812 Encounter for preprocedural laboratory examination (principal); K80.20 Calculus of gallbladder without cholecystitis without obstruction
CPT/HCPCS: 80076; 84703; 85025

== ENCOUNTER 2018-07-10 07:38 | Day surgery (SDC) | payer BC ==
[2018-07-08 16:19] VITALS: BMI 24.7
[2018-07-10] MEDS ORDERED: Sodium Chloride 0.9% 100 ML ONE (08:36)
[2018-07-10] MEDS ORDERED: cefOXitin 2 GM VIAL ONE (08:36)
[2018-07-10] MEDS ORDERED: Midazolam HCl 2 mg/2 ml Vial ONE (09:02)
[2018-07-10] MEDS ORDERED: Scopolamine 1.5 mg/72 hour Patch ONE (09:02)
[2018-07-10] MEDS ORDERED: Bupivacaine/Epinephrine 0.25% 30 ML VIAL ONE (09:14)
[2018-07-10] MEDS ORDERED: Fentanyl 100 MCG/2 ML VIAL ONE ×2 (09:20→10:48)
[2018-07-10] MEDS ORDERED: Promethazine HCl 25 MG/ML VIAL ONE ×2 (10:35→11:46)
[2018-07-10] MEDS ORDERED: Meperidine HCl/PF 25 MG/ML VIAL ONE (10:38)
--- NOTE | 2018-07-10 11:41 | OP ---
PREOPERATIVE DIAGNOSIS: Chronic cholecystitis. SURGEON: Vineet Gama M.D. PROCEDURE PERFORMED: Laparoscopic cholecystectomy. INDICATIONS: A 37-year-old female who has been having nausea and right upper quadrant pain, worse af ter eating. Ultrasound showed sludge and some probable gallstones. FINDINGS: She had inflammation with some adhesions to the gallbladder, small cystic duct in caliber. PROCEDURE: After informed consent was obtained, the patient was taken to the operating room and give n general endotracheal anesthesia. She was placed in the supine position. Her abdomen was prepped a nd draped in usual fashion. Local anesthesia was infiltrated subcutaneously and deep. A subumbilica l incision was performed. The subcu was divided sharply. The fascia was grasped and two stay suture s of 0 Vicryl placed to each side of midline. Midline was incised. Digital palpation revealed no lo tutu adhesions. A blunt 10/12 mm trocar was inserted. Pneumoperitoneum was created to a pressure of 15 mmHg. Zero-degree laparoscope was inserted and three 5 mm ports were placed subcostally. The gal lbladder was grasped, adhesions were lysed using blunt and sharp dissection. The peritoneum was open ed and the cystic duct, artery and critical view dissected out. The cystic duct was triply ligated a nd divided. The artery was triply ligated and divided. The gallbladder was removed from its fossa u tilizing electrocautery, removed from the abdomen through the umbilical port. Hemostasis was assured . Trocars and retractors were removed. The fascia closed with interrupted 0 Vicryl suture. The ski n was closed with interrupted 4-0 Rapide. Dermabond applied. The patient tolerated the procedure we ll and was transferred to recovery in good condition. Sponge and needle count verified correct x2.
[2018-07-10] MEDS ORDERED: Morphine 4 MG/ML VIAL ONE (11:53)
[2018-07-10] MEDS ORDERED: HYDROcodone/Acetaminophen 5/325 mg Tablet ONE (13:32)
[2018-07-10] MEDS ORDERED: Dexamethasone 20 MG/5 ML VIAL ONE (13:41)
[2018-07-10] MEDS ORDERED: PROPOFOL 200 MG/20 ML VIAL ONE (13:41)
[2018-07-10] MEDS ORDERED: Glycopyrrolate 0.2 MG/ML 5 ML SYRINGE ONE (13:41)
[2018-07-10] MEDS ORDERED: Succinylcholine Chloride 20 MG/ML 10 ml SYRINGE FS ONE (13:41)
[2018-07-10] MEDS ORDERED: Lidocaine 1% PF 5 ML VIAL ONE (13:41)
[2018-07-10] MEDS ORDERED: Ketorolac Tromethamine 30 MG/ML VIAL ONE (13:41)
[2018-07-10] MEDS ORDERED: Ondansetron PF 4 MG/2 ML Vial ONE (13:41)
== END 2018-07-10 14:20 | disposition home or self-care (01) ==
LOC: SDC 07:38
PROVIDERS: ATTEND Surgery
PROC: 0FT44ZZ Resection of Gallbladder, Percutaneous Endoscopic Approach (ICD-10-PCS; principal; 2018-07-10)
DX: K81.1 Chronic cholecystitis (principal); Z79.899 Other long term (current) drug therapy
CPT/HCPCS: 88304; 96374; J0694; J2175; J2250; J2270; J2550; J3010; J7050

== ENCOUNTER 2019-03-29 11:21 | Outpatient (CLI) | payer BC ==
--- NOTE | 2019-03-29 13:41 | RAD ---
PA AND LATERAL CHEST: Date: 03/29/19 COMPARISON: 06/15/18 study. HISTORY: Dyspnea. FINDINGS: Heart size within normal limits. Interstitial lung changes in the right mid and lower lung grimaldo are somewhat increased as compared to the prior exam. Left lung changes are stable. IMPRESSION: Increased interstitial change in right mid and lower lung grimaldo. This could represent some progressi on of interstitial fibrotic change or represent some type of acute interstitial infiltrate. Also sugg estion of some of the changes in the left upper lobe are slightly more prominent, although this may j ust be related to superimposition with the second rib. Follow-up chest films are recommended.
== END 2019-03-29 11:22 | disposition home or self-care (01) ==
LOC: RAD 11:21 → MERGE 11:21 → RAD 11:22
PROVIDERS: ATTEND Internal Medicine
DX: R06.00 Dyspnea, unspecified (principal)
CPT/HCPCS: 71046

== ENCOUNTER 2019-03-31 07:31 | Outpatient (CLI) | payer BC ==
[2019-03-31] MEDS ORDERED: Iopamidol 370 76% 100 ML VIAL ONE (09:00)
--- NOTE | 2019-03-31 14:30 | CT ---
CT the abdomen and pelvis with and without IV contrast INDICATION: Splenic lesions COMPARISON: CT of the chest dated August 18, 2018 FINDINGS: There is a new lobulated linear opacities within the right lung base suspicious for areas o f mucous plugging and subsegmental volume loss. There are scattered areas of mild groundglass opacity within the right lower lobe. The spleen measures 12.5 cm. There are numerous small hypodense lesions seen scattered throughout the spleen as seen on the comparison CT examination in August 2018. These appear to have slightly increased in number and size with one of the largest lesion measuring 1.2 cm. This lesion measured 9 mm on the prior exam. The gallbladder surgically absent. The pancreas, adrenal glands and kidneys are normal appearing. No enlarged lymph nodes are evident within the upper abdomen or retroperitoneum. The unopacified large and small bowel reveal no definite acute abnormality. There are bilateral tubal ligation clips. The bladder is unremarkable appearing. There is a 4.2 x 2.2 cm tubular hypodensity seen along the right lateral aspect of the suspected vagi nal wall that appears to originate along the anterolateral aspect of the right vaginal wall and is suspicious for a large Stefan's duct cyst. The rectum and paravertebral soft tissues are unremarkable appearing. Ornamentation is seen along the anterior aspect of the lower lobe. No acute osseous abnormality is evident. There is moderate disc degenerative disease at L5-S1. IMPRESSION: 1. Numerous splenic hypodensities have increased in number and size from the comparison examination d ated August 18, 2018. Differential considerations include splenic lymphoma or splenic metastatic disease. Infectious and inflammatory etiology such as TB, fungal disease or sarcoidosis could have a similar appearance. 2. Elongated lobular hypodensity within the right lateral aspect of the vaginal wall is suspicious fo r a Facundo's duct cyst. MR of the pelvis with and without contrast is recommended for further characterization. 3. New linear opacities within the right lung base suspicious for mucous plugging and subsegmental vo lume loss with some mild alveolitis within the right lower lobe. Please see the separately dictated, concurrent performed CT of the thorax for further details.
--- NOTE | 2019-03-31 15:21 | CT ---
CT CHEST WITH CONTRAST: Date: 03/31/19 HISTORY: Hemoptysis. COMPARISON: CT chest dated 08/18/18. FINDINGS: There is increase in the bilateral upper lobe peribronchovascular nodules, greatest along the right h ilum. Peribronchovascular nodularity extends along the right middle lobe and right lower lobe. There is a new nodule in the right lower lobe, lateral segment, with internal cavitations, measuring up to 1.8 cm. There are also new solid nodules in the posterior segment right upper lobe. There are also some nodules abutting the pleura creating a perilymphatic distribution. Ascending aorta measures up to 3.5 cm in size. The pulmonary trunk measures up to 3.0 cm in size. Small mediastinal lymph nodes. No acute osseous abnormality. No displaced rib fracture. IMPRESSION: Increased perilymphatic distribution of nodules with upper lobe predominance, as well as marked exten denton along the peribronchovascular interstitium. There are new nodules, some with central cavitation. Overall, given the patient's age and previous findings of mediastinal adenopathy, this is suspicious for sarcoidosis. Silicosis, LIP, pneumoconiosis, and lymphangitic spread of carcinoma are fell all m uch less likely. Correlation with bronchoscopy recommended. POS: HOME
== END 2019-03-31 07:32 | disposition home or self-care (01) ==
LOC: SCSCT 07:31 → MERGE 08:00
PROVIDERS: ATTEND Internal Medicine
DX: R04.2 Hemoptysis (principal); D73.89 Other diseases of spleen
CPT/HCPCS: 71260; 74178; Q9967

== ENCOUNTER 2019-04-01 10:53 | Outpatient (CLI) | payer BC ==
--- NOTE | 2019-04-01 11:19 | MMO ---
Bilateral MAMMO Bilat Screen DDI+TOMMY. CLINICAL HISTORY: Patient is 38 years old and is seen for screening. The patient has no family history of breast cancer. The patient has no personal history of cancer. VIEWS: The views performed were: bilateral craniocaudal with tomosynthesis and bilateral mediolateral oblique with tomosynthesis. MAMMOGRAM FINDINGS: The breasts are heterogeneously dense, which could obscure a lesion on mammography. There are benign appearing calcifications seen in the right breast. There are no suspicious masses, suspicious calcifications, or new areas of architectural distortion. IMPRESSION: THERE IS NO MAMMOGRAPHIC EVIDENCE OF MALIGNANCY. A ROUTINE FOLLOW-UP MAMMOGRAM IN 1 YEAR IS RECOMMENDED. THE RESULTS OF THIS EXAM WERE SENT TO THE PATIENT. ACR BI-RADS Category 2 - Benign finding MAMMOGRAPHY NOTE: 1. A negative mammogram report should not delay a biopsy if a dominant of clinically suspicious mass is present. 2. Approximately 10% to 15% of breast cancers are not detected by mammography. 3. Adenosis and dense breasts may obscure an underlying neoplasm. Reported by: YEIMI MADRIGAL MD Electonically Signed: [id number]
--- NOTE | 2019-04-01 14:17 | HP ---
SERVICE: Pulmonary Medicine. REASON FOR VISIT: Followup CT scan. HISTORY OF PRESENT ILLNESS: The patient is a pleasant 38-year-old white female , who I have been following for a short period of time. Originally, it was because of a pulmonary infiltrate. We had multiple CT scans showing that this infiltrate continued to change from place to place. Ultimately, it was decided that it maybe associated with her acid reflux disease. She did have a chronic cough this entire time. At times, it was quite severe. She underwent a sleeve surgery and a fundoplication. With these, her cough really improved and the infiltrate stopped occurring. That being said, she had some small pulmonary nodules back in September. We were just going to simply follow them through time. Six months later, we did a repeat CT of the chest and there is much more lymphangitic pulmonary nodules present. Her cough has actually been improving over the last 6 months. She says she is losing a little bit of weight. She is not having any night sweats. She did have one episode of hemoptysis over the past several months. She denies any current fevers, chills, nausea, vomiting, or diarrhea. Otherwise, she is in her usual state of health. PAST MEDICAL HISTORY: 1. Gastroesophageal reflux disease. 2. Interstitial lung disease, not otherwise specified currently. PAST SURGICAL HISTORY: 1. Left foot surgery at age 2. 2. Tympanoplasty, bilateral, age 2. 3. Laparoscopic Abebe fundoplication, 2018. 4. Cholecystectomy, laparoscopic, 2018. ALLERGIES: NO KNOWN DRUG ALLERGIES. MEDICATIONS: None. SOCIAL HISTORY: She drinks alcohol occasionally. She is a lifelong nonsmoker and has no exposure to chemicals, dust, asbestos, or tuberculosis. She denies illicit substances. She works in a school. FAMILY HISTORY: Mother and maternal grandfather both are with mesothelioma. Dad had coronary artery disease. Diabetes and heart failure run in primary family members. REVIEW OF SYSTEMS: General; head, eyes, ears, nose, and throat; cardiovascular, respiratory, GI, , musculoskeletal, neurologic, and skin are negative, except as mentioned in the HPI. PHYSICAL EXAMINATION: VITAL SIGNS: Afebrile. pulse 82, respirations 18, and saturation 99% on room air. GENERAL: The patient is awake and alert, in no apparent distress. LUNGS: Decent air entry. I do not appreciate any crackling. HEART: Normal rate regular. ABDOMEN: Soft, nontender, and nondistended. Bowel sounds are positive. MUSCULOSKELETAL: No cyanosis or clubbing. No pitting in the bilateral lower extremities. NEUROLOGIC: Grossly nonfocal. IMAGING STUDIES: CT of the chest today demonstrates increased pulmonary nodularity in the bilateral upper lung zones. This has a lymphangitic pattern. It is upper lobe predominant. She also has an area of possible atelectasis versus mucus plugging in the left lower lobe, which is new compared to prior. There are subpathologic mediastinal lymph nodes that are identified. CT of the abdomen and pelvis demonstrates multiple hypodensities inside the spleen. This has actually increased compared to prior as well. ASSESSMENT: 1. Interstitial lung disease, not currently specified. 2. Chronic cough, continuing to improve after Abebe fundoplication. 3. Obstructive sleep apnea, mild. Prior to over 50 pounds of weight loss with recent surgery. 4. Family history of mesothelioma in mother and maternal grandfather. 5. Multiple splenic lesions. 6. Elongated lobar hypodensity in the right lateral aspect of the vaginal wall, suspicious for Facundo duct cyst. DISCUSSION AND PLAN: We will pursue a bronchoscopy. This will be for transbronchial biopsies, BAL, and brushings. Also, I will do an endobronchial ultrasound fine-needle aspiration of mediastinal the lymph nodes if they can adequately be identified using the ultrasound. I will have her return to clinic in roughly 2 weeks to follow up the initial results of these studies. At that time, we will talk about investigating this vaginal issue with her [employer]. Of note, prior testing including LUIS, ANCA, rheumatoid factor, CRP, ESR, CBC, metabolic profile, urinalysis, anti-Jayna-1 antibody, and IgG4 levels were all unremarkable. To round out our ILD workup, I will send off a hypersensitivity pneumonitis panel, and also a QuantiFERON gold. I had a conversation with Interventional Radiology and they are suggesting to me that none of the splenic lesions are large enough to reliably get a sample. As such, there are fears that it would be nothing more than a random biopsy. This will only be pursued if necessary in the near future. Job ID: [id number] MTDD
== END 2019-04-01 10:54 | disposition home or self-care (01) ==
LOC: BICMAMMO 10:53
PROVIDERS: ATTEND Obstetrics & Gynecology
DX: Z12.31 Encounter for screening mammogram for malignant neoplasm of breast (principal)
CPT/HCPCS: 77063; 77067

== ENCOUNTER 2019-04-02 08:07 | Day surgery (SDC) | payer BC ==
[2019-04-01 14:55] VITALS: BMI 22.0
[2019-04-02] MEDS ORDERED: Fentanyl 100 MCG/2 ML VIAL ONE ×2 (09:32→11:42)
[2019-04-02] MEDS ORDERED: Midazolam HCl 2 mg/2 ml Vial ONE (10:12)
[2019-04-02 12:25] LABS: BF Color Red; Body Fluid Source Bronchial Washings; Clarity Cloudy/Turbid (Clear); Tube # EDTA
[2019-04-02 13:12] LABS: BF WBC/Nonhematics Ct. - Manua 353 /cumm
[2019-04-02 13:37] LABS: Cell Count Non Hematic 73 %
[2019-04-02 13:38] LABS: BF Segmented Neutrophils 2 %; Lymphocytes 24 %
[2019-04-02] MEDS ORDERED: Lidocaine 1% PF 5 ML VIAL ONE (16:05)
[2019-04-02] MEDS ORDERED: Ondansetron PF 4 MG/2 ML Vial ONE (16:05)
[2019-04-02] MEDS ORDERED: PROPOFOL 200 MG/20 ML VIAL ONE (16:05)
[2019-04-02] MEDS ORDERED: Succinylcholine Chloride 20 MG/ML 10 ml SYRINGE FS ONE (16:05)
[2019-04-02] MEDS ORDERED: PHENYLEPHRINE-NS 100 MCG/ML 10 ML SYRINGE ONE (16:05)
[2019-04-02] MEDS ORDERED: Dexamethasone 20 MG/5 ML VIAL ONE (16:05)
--- NOTE | 2019-04-02 16:46 | OP ---
DATE OF PROCEDURE: 04/02/2019 SERVICE: Pulmonary Medicine. PROCEDURES PERFORMED: Fiberoptic bronchoscopy with: 1. Visual airway inspection. 2. Endoscopic bronchial ultrasound-guided transbronchial needle aspiration of 7, R4. 3. Endobronchial brush of the right upper lobe. 4. Bronchoalveolar lavage of the right upper lobe. 5. Transbronchial biopsies of the right upper lobe. 6. Endobronchial biopsies of the adrien. PREPROCEDURE DIAGNOSES: 1. Pulmonary infiltrate. 2. Interstitial lung disease, suspected. POSTPROCEDURE DIAGNOSES: 1. Pulmonary infiltrate. 2. Interstitial lung disease, suspected. PREANESTHESIA ASSESSMENT: H and P had been performed. The patient's medications and allergies were reviewed. Informed consent was obtained after discussing the risks, benefits, and rationale for performing the procedure. Alternative options for sample collection were discussed. DESCRIPTION OF PROCEDURE: The patient was positively identified with name and date of . The procedure was verified. After induction with anesthesia, the curvilinear endoscopic bronchial ultrasound Olympus bronchoscope was introduced through the endotracheal tube and into the tracheobronchial tree. Initially, a limited visual airway inspection was performed. There was some purulent secretions that were suctioned. It was obvious that the mucosa was quite friable on entry throughout the trachea and right and left mainstem bronchi. The bronchoscope was withdrawn into the trachea and a shahram survey was performed. There was a very small 7, and R4 identified. Both of them were 4 mm or less. Fine-needle aspiration and EBUS-guided TBNA was performed. There was no significant postbiopsy bleeding. The EBUS was removed, and a diagnostic fiberoptic bronchoscope was introduced through the endotracheal tube. The bronchoscope was advanced into the trachea, where tracheobronchial tree inspection was carried out with clear identification of the right upper lobe, right middle lobe, right lower lobe, left upper lobe, lingula, and left lower lobe. Anatomy was normal to the segmental level. As previously detailed, there was horrendous inflammatory changes throughout bilateral bronchial tree. The mucosa was quite friable. Bronchoalveolar lavage was obtained from the right upper lobe. Endobronchial brushings and transbronchial biopsies were obtained from the right upper lobe. Endobronchial biopsies were subsequently obtained at the adrien. Hemostasis was verified and the bronchoscope was subsequently removed from the patient. Postprocedure fluoroscopy did not demonstrate a pneumothorax. FINDINGS: 1. Diffuse inflammatory changes were present throughout the tracheobronchial tree. 2. Secretions were minimal, but yellow. 3. No endobronchial disease was identified in the posterior segments of the lower lobes. SPECIMENS OBTAINED: 1. Pathology on BAL, brushing, transbronchial biopsy, and endobronchial biopsy. 2. Fine-needle aspiration R4, 7. 3. Microbiology on BAL. COMPLICATIONS: None. ESTIMATED BLOOD LOSS: 10 mL. FLUOROSCOPY TIME: 55 seconds. DISPOSITION: The patient will be discharged home with postprocedure instructions. She will return to see me in 2 weeks as previously directed. Job ID: [id number]
[2019-04-06 10:10] LABS: Fungus Stain Final report (.)
[2019-04-07 08:11] LABS: Aspergillus fumigatus Negative (Negative); Aureobasidium pullalans IgG Negative (Negative); Micropolyspora faeni Negative (Negative); Pigeon Droppings IgG Negative (Negative); T sacchari Negative (Negative); T vulgaris Negative (Negative)
== END 2019-04-02 13:35 | disposition home or self-care (01) ==
LOC: SDC 08:07
PROVIDERS: ATTEND Internal Medicine
PROC: 0BB28ZX Excision of Carina, Via Natural or Artificial Opening Endoscopic, Diagnostic (ICD-10-PCS; principal; 2019-04-02)
PROC: 07D78ZX Extraction of Thorax Lymphatic, Via Natural or Artificial Opening Endoscopic, Diagnostic (ICD-10-PCS; principal; 2019-04-02)
PROC: 0B9C8ZX Drainage of Right Upper Lung Lobe, Via Natural or Artificial Opening Endoscopic, Diagnostic (ICD-10-PCS; principal; 2019-04-02)
PROC: 0BDC8ZX Extraction of Right Upper Lung Lobe, Via Natural or Artificial Opening Endoscopic, Diagnostic (ICD-10-PCS; principal; 2019-04-02)
DX: J98.4 Other disorders of lung (principal); K21.9 Gastro-esophageal reflux disease without esophagitis; G47.33 Obstructive sleep apnea (adult) (pediatric); D73.89 Other diseases of spleen
CPT/HCPCS: 36415; 76000; 85060; 86331; 86480; 86602; 86606; 86671; 87070; 87102; 87116; 87205; 87206; 88112; 88172; 88173; 88305; 88312; 88313; 89051; J2250; J3010

== ENCOUNTER 2020-09-01 12:33 | Outpatient (CLI) | payer BC ==
--- NOTE | 2020-09-01 13:12 | RAD ---
XR Chest Pa Lat STANDARD History: Dyspnea Comparison: CT angiogram chest July 2020 Findings: Similar appearance of reticulonodular scarring throughout the right middle lobe and right l ower lobe. No pneumothorax. No effusion. No acute osseous abnormality. Impression: No acute intrathoracic abnormality. Similar right middle lobe and right lower lobe scar.
== END 2020-09-01 12:34 | disposition home or self-care (01) ==
LOC: BICRAD 12:33
PROVIDERS: ATTEND Internal Medicine Critical Care Medicine
DX: R06.00 Dyspnea, unspecified (principal); R50.9 Fever, unspecified; L90.5 Scar conditions and fibrosis of skin
CPT/HCPCS: 71046

== ENCOUNTER 2021-09-26 07:33 | Outpatient (CLI) | payer BC ==
[2021-09-26] MEDS ORDERED: Iopamidol 370 76% 100 ML VIAL ONE (10:58)
== END 2021-09-26 07:34 | disposition home or self-care (01) ==
LOC: CT 07:33
PROVIDERS: ATTEND Internal Medicine Gastroenterology
DX: R10.9 Unspecified abdominal pain (principal); R58 Hemorrhage, not elsewhere classified; J98.4 Other disorders of lung
CPT/HCPCS: 74177; Q9967